=== PATIENT | female | born 1995 | race Caucasian/White ===

== ENCOUNTER 2018-10-09 08:09 | Day surgery (SDC) | payer OTHER ==
[2018-10-09 09:05] LABS: INTERNATIONAL RATION (INR) 0.99; PROTHROMBIN TIME 13.6 SEC (11.4-15.4)
[2018-10-09 09:06] LABS: PARTIAL THROMBOPLASTIN TIME 33.3 SEC (23.5-35.8)
[2018-10-09 11:39] LABS: GLUCOSE,CSF 54 mg/dL (40-70); PROTEIN,CSF 23 mg/dL (12-60)
[2018-10-09 12:03] LABS: COLOR ALL TUBES COLORLESS; CSF TUBE NUMBER 3
[2018-10-09 12:04] LABS: APPEARANCE ALL TUBES CLEAR; CSF TOTAL VOLUME 8.5 CC; RED BLOOD CELL,CSF 6 /uL (0-10); VOLUME TUBE 4 2.5 CC
[2018-10-09 12:05] LABS: WHITE BLOOD CELL,CSF 3 /uL (0-5)
--- NOTE | 2018-10-09 12:38 | RADIOLOGY REPORT (SQ) ---
EXAM DESCRIPTION: LUMBAR PUNCTURE; FLUORO/NEEDLE PLACEMENT/SPINE COMPLETED DATE/TIME: 10/09/2018 11:08 am REASON FOR STUDY: MULTIPLE SCLEROSIS COMPARISON: None. FLUOROSCOPY TIME: 9 seconds 1 digital fluoroscopic images saved to PACS. TECHNIQUE: Fluoroscopic guided lumbar puncture. LIMITATIONS: None. PROCEDURE: After written consent and assessment were obtained, the patient was brought into the fluo roscopy room and placed prone on the table. The patient's lower back was prepped in a sterile fashio n and an entry site was selected under live fluoroscopic guidance, right paracentral L2-3 level. The entry site was anesthetized with 4 mL of 1% lidocaine. A 22 gauge needle was advanced through the ski n and into the thecal sac at the right paracentral L2-3 level After approximately 8.5 ml was drained, the needle was removed and a sterile bandage was placed of the site. Specimens were sent to the lab for testing. A fluoroscopic spot image was saved to PACS confirming level access. FINDINGS: Clear CSF, opening pressure 23 cm of water. IMPRESSION: Lumbar puncture under fluoroscopy. No immediate complication. COMMENT: Patient medication list reviewed: Yes- Quality ID# 130:Eligible professional attests to doc umenting in the medical record they obtained, updated, or reviewed the patient's current medications. . Quality ID 145: Final reports for procedures using fluoroscopy that document radiation exposure an harman, or exposure time and number of fluorographic images (if radiation exposure indices are not avail able) TECHNICAL DOCUMENTATION: JOB ID: [id number] [employer]- All Rights Reserved Reading location - IP/workstation name: [email or web address]
[2018-10-09 13:08] VITALS: BP 104/65
== END 2018-10-09 13:05 | disposition home or self-care (01) ==
LOC: RAD 08:09
PROVIDERS: ATTEND Specialist
DX: G35 Multiple sclerosis (principal); Z87.820 Personal history of traumatic brain injury; R51 Headache; J45.909 Unspecified asthma, uncomplicated; Z88.8 Allergy status to other drugs, medicaments and biological substances; Z79.51 Long term (current) use of inhaled steroids; Z79.899 Other long term (current) drug therapy
CPT/HCPCS: 36415; 62270; 77003; 82784; 82945; 83916; 84157; 85610; 85730; 87070; 87205; 89050

== ENCOUNTER 2018-10-10 15:55 | Emergency (ER) | payer OTHER ==
[2018-10-10] MEDS ORDERED: NORMAL SALINE 1000 ML 1,000 ML IV ONE (16:40)
--- NOTE | 2018-10-10 16:42 | ER Document Report ---
ED Medical Screen (RME) - General Chief Complaint: Headache Stated Complaint: HEADACHE Time Seen by Provider: 10/10/18 16:39 Primary Care Provider: LIBORIO JIN MD [Primary Care Provider] - Follow up as needed Mode of Arrival: Ambulatory Information source: Patient Notes: 22-year-old female presents to ED for complaint of back pain. She states she [facility] and the pain and headache have become much worse. She states the pain is shooting down her pelvis and hips. She states that the [facility] told yesterday to return if symptoms were not relieved within 24 hours. She states they called her today and when she described her symptoms they told her to come to the emergency room now. Patient is here for increase in pain. I have ordered blood work labs and for patient to be placed in a bed laying flat. She will be evaluated by another provider. Ela Teacher Dr. Ellis he states the main thing was to get the labs and get IV fluids going and have her seen. I have greeted and performed a rapid initial assessment of this patient. A comprehensive ED assessment and evaluation of the patient, analysis of test results and completion of medical decision making process will be conducted by an additional ED providers. TRAVEL OUTSIDE OF THE [place] IN LAST 30 DAYS: No - Related Data Allergies/Adverse Reactions: No Known Allergies Allergy (Unverified 10/10/18 15:56) Past Medical History - Past Medical History Cardiac Medical History: Denies: Hx Coronary Artery Disease, Hx Heart Attack, Hx Hypertension Pulmonary Medical History: Reports: Hx Asthma, Hx Pneumonia Denies: Hx Bronchitis, Hx COPD Neurological Medical History: Reports: Hx Seizures - As a child. Denies: Hx Cerebrovascular Accident Musculoskeltal Medical History: Denies Hx Arthritis - Immunizations Hx Diphtheria, Pertussis, Tetanus Vaccination: Yes History of Influenza Vaccine for 06/2017 - 11/2017 Season: Yes Influenza Administration Date for 06/2017 - 11/2017 Season: 08/09/18 Physical Exam - Vital signs Vitals: Temp Pulse Resp BP Pulse Ox 98.9 F 97 16 114/83 96 10/10/18 16:09 10/10/18 16:09 10/10/18 16:09 10/10/18 16:09 10/10/18 16:09 Course - Vital Signs Vital signs: Temp Pulse Resp BP Pulse Ox 98.9 F 97 16 114/83 96 10/10/18 16:09 10/10/18 16:09 10/10/18 16:09 10/10/18 16:09 10/10/18 16:09 Doctor's Discharge - Discharge Referrals: LIBORIO JIN MD [Primary Care Provider] - Follow up as needed
[2018-10-10 17:09] LABS: ABSOLUTE BASOPHILS # (AUTO) 0.1 10^3/uL (0.0-0.2); ABSOLUTE EOSINOPHILS # (AUTO) 0.2 10^3/uL (0.0-0.6); ABSOLUTE LYMPHOCYTES (AUTO) 2.5 10^3/uL (0.5-4.7); ABSOLUTE MONOCYTES (AUTO) 0.6 10^3/uL (0.1-1.4); ABSOLUTE NEUT (AUTO) 7.1 10^3/uL (1.7-8.2); BASOPHILS % (AUTO) 0.5 % (0-2); EOSINOPHILS % (AUTO) 1.9 % (0-6); HEMATOCRIT 44.6 % (36.0-47.0); HEMOGLOBIN 15.8 g/dL (12.0-15.5); LYMPHOCYTES % (AUTO) 24.1 % (13-45); MEAN CORPUSCULAR HGB CONC 35.3 g/dL (32.0-36.0); MEAN CORPUSCULAR VOLUME 88 fl (80-97); MONOCYTES % (AUTO) 5.5 % (3-13); PLATELET COUNT 330 10^3/uL (150-450); RED BLOOD COUNT 5.08 10^6/uL (3.72-5.28); RED CELL DISTRIBUTION WIDTH 12.5 % (11.5-14.0); TOTAL CELLS COUNTED % (AUTO) 100 %; WHITE BLOOD COUNT 10.5 10^3/uL (4.0-10.5)
[2018-10-10 17:29] LABS: ALANINE AMINOTRANSFERASE 27 U/L (9-52); ALBUMIN 4.6 g/dL (3.5-5.0); ALKALINE PHOSPHATASE 52 U/L (38-126); ANION GAP 10 (5-19); ASPARTATE AMINO TRANSFERASE 18 U/L (14-36); BILIRUBIN,DIRECT 0.1 mg/dL (0.0-0.4); BILIRUBIN,TOTAL 0.3 mg/dL (0.2-1.3); BLOOD UREA NITROGEN 11 mg/dL (7-20); CALCIUM 9.8 mg/dL (8.4-10.2); CARBON DIOXIDE 27 mmol/L (22-30); CHLORIDE 103 mmol/L (98-107); GLUCOSE 84 mg/dL (75-110); POTASSIUM 4.1 mmol/L (3.6-5.0); SODIUM 139.5 mmol/L (137-145); TOTAL PROTEIN 6.7 g/dL (6.3-8.2)
[2018-10-10 17:53] LABS: APPEARANCE,URINE SLIGHTLY-CLOUDY; BILIRUBIN,URINE NEGATIVE (NEGATIVE); COLOR,URINE YELLOW; GLUCOSE, URINE NEGATIVE (NEGATIVE); KETONES,URINE NEGATIVE (NEGATIVE); LEUKOCYTE ESTERASE,URINE TRACE (NEGATIVE); NITRITE,URINE NEGATIVE (NEGATIVE); PROTEIN,URINE NEGATIVE (NEGATIVE); URINE SPECIFIC GRAVITY 1.015; UROBILINOGEN,URINE NEGATIVE mg/dL (<2.0)
[2018-10-10] MEDS ORDERED: MORPHINE SULFATE 10 MG/ML INJ IV ONE (18:14)
[2018-10-10] MEDS ORDERED: METOCLOPRAMIDE HCL INJ/PF 10 MG/2 ML SDV IV ONE (18:25)
--- NOTE | 2018-10-10 19:05 | ER Document Report ---
ED General - General Chief Complaint: Headache Stated Complaint: HEADACHE Time Seen by Provider: 10/10/18 16:39 Primary Care Provider: LIBORIO JIN MD [Primary Care Provider] - Follow up as needed Mode of Arrival: Ambulatory Notes: Patient is a 22-year-old female without chronic medical problems, had a diagnostic lumbar puncture performed yesterday to evaluate for possible MS. States that several hours after receiving lumbar puncture she developed a global, throbbing, constant headache that has been ongoing since that time. Patient states that the headache is associated with photophobia as well as nausea but no vomiting. She tried her triptan migraine medication at home without relief. States that standing or exerting herself worsens the head. Does have history of migraine headaches but states this does not feel like her typical migraine headache. Contacted the clinic that performed a lumbar puncture, was instructed to come to the emergency department. Denies any focal weakness, numbness, fever or confusion. Contrary to triage assessment patient denies any significant pain to the lumbar puncture site. TRAVEL OUTSIDE OF THE [place] IN LAST 30 DAYS: No - Related Data Allergies/Adverse Reactions: No Known Allergies Allergy (Unverified 10/10/18 15:56) Past Medical History - General Information source: Patient - Social History Smoking Status: Current Every Day Smoker Frequency of alcohol use: Occasional Drug Abuse: None Lives with: Spouse/Significant other Family History: Reviewed & Not Pertinent Patient has suicidal ideation: No Patient has homicidal ideation: No - Past Medical History Cardiac Medical History: Denies: Hx Coronary Artery Disease, Hx Heart Attack, Hx Hypertension Pulmonary Medical History: Reports: Hx Asthma, Hx Pneumonia Denies: Hx Bronchitis, Hx COPD Neurological Medical History: Reports: Hx Seizures - As a child. Denies: Hx Cerebrovascular Accident Renal/ Medical History: Denies: Hx Peritoneal Dialysis Musculoskeletal Medical History: Denies Hx Arthritis Past Surgical History: Reports: Hx Tonsillectomy - Immunizations Hx Diphtheria, Pertussis, Tetanus Vaccination: Yes Review of Systems - Review of Systems Notes: Constitutional: Negative for fever. HENT: Negative for sore throat. Eyes: Negative for visual changes. Cardiovascular: Negative for chest pain. Respiratory: Negative for shortness of breath. Gastrointestinal: Negative for abdominal pain, vomiting or diarrhea. Genitourinary: Negative for dysuria. Musculoskeletal: Negative for back pain. Skin: Negative for rash. Neurological: Positive for headache 10 point ROS negative except as marked above and in HPI. Physical Exam - Vital signs Vitals: Temp Pulse Resp BP Pulse Ox 98.9 F 97 16 114/83 96 10/10/18 16:09 10/10/18 16:09 10/10/18 16:09 10/10/18 16:09 10/10/18 16:09 Interpretation: Normal Notes: PHYSICAL EXAMINATION: GENERAL: Well-appearing, well-nourished and in no acute distress. HEAD: Atraumatic, normocephalic. EYES: Pupils equal round and reactive to light, extraocular movements intact, sclera anicteric, conjunctiva are normal. ENT: nares patent, oropharynx clear without exudates. Moist mucous membranes. NECK: Normal range of motion, supple without lymphadenopathy LUNGS: Breath sounds clear to auscultation bilaterally and equal. No wheezes rales or rhonchi. HEART: Regular rate and rhythm without murmurs ABDOMEN: Soft, nontender, normoactive bowel sounds. No guarding, no rebound. No masses appreciated. EXTREMITIES: Normal range of motion, no pitting or edema. No cyanosis. NEUROLOGICAL: Face symmetric. Tongue protrudes midline. Extraocular motions intact. Pupils are 2 mm and equally reactive. Normal speech, normal gait. 5 out of 5 strength in both the distal and proximal upper and lower extremities bilaterally. Sensation is grossly intact throughout. Finger to nose testing normal. Pronator drift normal. PSYCH: Normal mood, normal affect. SKIN: Warm, Dry, normal turgor, no rashes or lesions noted. Course - Re-evaluation Re-evalutation: 10/10/18 19:02 Patient presents with signs and symptoms most consistent with a post lumbar puncture headache. Headache is positional in nature, global, and has started since the patient had a lumbar puncture yesterday to definitively exclude multiple sclerosis. LP site appears well, no evidence of subcutaneous hematoma. A full neurologic exam is completely unremarkable. Labs obtained in triage reviewed, not pertinent to presentation. I have discussed with the patient that the only curative measure in this context would be a blood patch. We have discussed an alternative course of watchful waiting as these lumbar puncture headaches do typically resolve within the next 1 week. Patient did elect to go home, begin taking caffeine, plenty of fluids and follow-up with her neurologist. She understands that the headache could take an additional 7 days to go away. She has declined setting up an appointment with anesthesiology for a blood patch tomorrow. Clinical history and exam are not consistent with meningitis, encephalitis, subarachnoid hemorrhage, intercranial mass or any alternative worrisome diagnosis. At this time will discharge with return precautions and follow-up recommendations. Verbal discharge instructions given a the bedside and opportunity for questions given. Medication warnings reviewed. Patient is in agreement with this plan and has verbalized understanding of return precautions and the need for primary care follow-up in the next 24-72 hours. - Vital Signs Vital signs: Temp Pulse Resp BP Pulse Ox 97.9 F 71 17 118/72 100 10/10/18 19:34 10/10/18 19:34 10/10/18 19:34 10/10/18 19:34 10/10/18 19:34 - Laboratory Result Diagrams: 10/10/18 17:00 10/10/18 17:00 Laboratory results interpreted by me: 10/10/18 10/10/18 17:00 17:24 Hgb 15.8 H Ur Leukocyte Esterase TRACE H Discharge - Discharge Clinical Impression: Post lumbar puncture headache Condition: Good Disposition: HOME, SELF-CARE Additional Instructions: You have been seen in the Emergency Department (ED) for a headache. Please use Tylenol (acetaminophen) or Motrin (ibuprofen) as needed for symptoms, but only as written on the box. You should also take caffeine pills, 200 mg every 6 hours and drink plenty of fluids. You should try laying down as much as poss ible which can help reduce your pain. Your headache is likely due to the lumbar puncture. The formal diagnosis is "post lumbar puncture headache". As we discussed there is no medications to resolve this, only a procedural option of a blood patch. You have declined setting up an appointment for this procedure. Your headache may last up to an additional 7 days. As we have discussed, please follow up with your primary care doctor as soon as possible regarding today's ED visit and your headache symptoms. Call your doctor or return to the ED if you have a worsening headache, fever greater than 100.4 F, sudden and severe headache, confusion, slurred speech, facial droop, weakness or numbness in any arm or leg, extreme fatigue, or other symptoms that concern you. Referrals: LIBORIO JIN MD [Primary Care Provider] - Follow up as needed
[2018-10-10 19:40] VITALS: BP 118/72
== END 2018-10-10 19:40 | disposition home or self-care (01) ==
LOC: ER 15:55
DX: G97.1 Other reaction to spinal and lumbar puncture (principal); R51 Headache; Y84.4 Aspiration of fluid as the cause of abnormal reaction of the patient, or of later complication, without mention of misadventure at the time of the procedure; F17.200 Nicotine dependence, unspecified, uncomplicated; J45.909 Unspecified asthma, uncomplicated
CPT/HCPCS: 99284; 96361; 96374; 96375; 36415; 85025; 80053; 81001; J2765; J2270; J7030

== ENCOUNTER → 2020-03-07 | Outpatient (CLI) | payer OTHER ==
--- NOTE | 2020-03-07 10:07 | RADIOLOGY REPORT (SQ) ---
EXAM DESCRIPTION: CHEST PA/LATERAL IMAGES COMPLETED DATE/TIME: 03/07/2020 9:56 am REASON FOR STUDY: PERSISTENT COUGH COMPARISON: None. EXAM PARAMETERS: NUMBER OF VIEWS: two views TECHNIQUE: Digital Frontal and Lateral radiographic views of the chest acquired. RADIATION DOSE: NA LIMITATIONS: none FINDINGS: LUNGS AND PLEURA: Subtle nodular asymmetric opacity in the right medial base. Possibly pr ominent nipple shadow. Recommend repeat chest with nipple markers in place. Lung mock are otherwi se clear. No effusions. No pneumothorax. No consolidation. MEDIASTINUM AND HILAR STRUCTURES: No masses or contour abnormalities. HEART AND VASCULAR STRUCTURES: Heart normal size. No evidence for failure. BONES: No acute findings. HARDWARE: None in the chest. OTHER: No other significant finding. IMPRESSION: Subtle asymmetric nodular opacity in the right medial base as described. Repeat chest w ith nipple markers in place is recommended. TECHNICAL DOCUMENTATION: JOB ID: [id number] [employer]- All Rights Reserved Reading location - IP/workstation name: [email or web address]
== END ==
LOC: OD 09:26
PROVIDERS: ATTEND Physician Assistant
DX: R05 Cough (principal)
CPT/HCPCS: 71046